=== PATIENT | female | born 1980 | race Caucasian/White ===

== ENCOUNTER 2020-03-12 09:00 | Outpatient (CLI) | payer OTHER ==
[~2020-03-12 09:00] MED LIST: BUFFERED LIDOCAINE 10 ML SYRINGE ONE; GADOBUTROL 7.5 MMOL/7.5 ML VIAL ONE
[2020-03-12] MEDS ORDERED: GADOBUTROL 7.5 MMOL/7.5 ML VIAL IVP ONE (10:30)
[2020-03-12] MEDS ORDERED: BUFFERED LIDOCAINE 10 ML SYRINGE IU ONE (10:30)
[2020-03-12] MEDS ORDERED: iohexoL-240 10 ML VIAL IVP ONE (10:31)
--- NOTE | 2020-03-12 10:54 | XRAY Report ---
Reason: LEFT KNEE PAIN, R/O MENISCAL TEAR Procedure Date: 03/12/2020 Accession Number: [id number] / [id number] Procedure: FL - Arthrogram Needle Placement CPT Code: Final Report FULL RESULT: PROCEDURE: Arthrogram Needle Placement INDICATIONS: LEFT KNEE PAIN, R/O MENISCAL TEAR TECHNIQUE: PROCEDURE: Arthrogram Needle Placement INDICATIONS: LEFT KNEE PAIN, R/O MENISCAL TEAR CONTRAST: CONTRAST: GADAVIST/ OMNI FLUORO TIME: FLUORO TIME: 0:31 min and NUMBER IMAGES: 3 TECHNIQUE: The indications, alternatives, benefits, risks, and complications of the procedure were explained to the patient. Written informed consent was obtained and placed in the chart. The knee was examined fluoroscopically, and a site chosen for knee joint injection. The skin was prepped and draped in the usual fashion and 1% Lidocaine infiltrated from the skin down to the articular surface. A hypodermic needle was then introduced into the joint and iodinated contrast media was instilled to confirm the intra-articular needle tip placement. This was followed by approximately 50 mL dilute solution of a gadolinium containing MR contrast agent. The needle was removed and a bandage was applied. An Scot wrap was then applied around the knee joint to keep the contrast from collecting in the suprapatellar recess. The patient experienced no complications throughout the procedure and left the fluoroscopic suite in no apparent distress. FINDINGS: Single fluoroscopic spot image demonstrates intra-articular location to injected iodinated contrast. IMPRESSION: Successful fluoroscopically guided administration of dilute Gadolinium solution into the knee joint for MR arthrogram. Reviewed by: Jennifer Timmons MD on 03/12/2020 10:52 AM PDT Approved by: Jennifer Timmons MD on 03/12/2020 10:52 AM PDT Station ID: [id number]
--- NOTE | 2020-03-12 16:30 | MRI Report ---
PROCEDURE: Arthrogram Knee LT INDICATIONS: LEFT KNEE PAIN, R/O MENISCAL TEAR CONTRAST: TECHNIQUE: After the administration of 50 mL of dilute intra-articular Gadolinium contrast, sagittal T1 spin ech o with fat saturation and PD fast spin echo with fat saturation, coronal T1 spin echo with and withou t fat saturation, coronal T2 fast spin echo with fat saturation, axial PD fast spin echo with fat sat uration through the knee. COMPARISON: FINDINGS: Image quality: Diagnostic. There are post injection related changes in the prepatellar and lateral prepatellar soft tissues. Menisci: Medial meniscus intact. Lateral meniscus intact. Cruciate ligaments: Anterior cruciate ligament appears intact. Posterior cruciate ligament appears intact. Medial structures: The medial collateral ligament appears intact. The semimembranosus tendon appears intact. Visualized portions of the pes anserinus tendons appear normal. No abnormal bursal fluid. Lateral structures: Lateral collateral ligament appears grossly intact. Biceps femoris tendon appears intact. Iliotibial band within normal limits. Popliteus tendon within normal limits. Anterior structures: Patellar tendon appears intact Quadriceps tendon appears intact. Medial and lateral patellofemoral ligaments appear grossly intact, accounting for post injection rela azael change. Patellar alignment is normal. Hoffa's fat pad unremarkable. Bones and cartilage: No bone marrow contusions or fractures. Within the medial compartment, no focal cartilage defect Within the lateral compartment, no focal cartilage defect Within the patellofemoral compartment, mild thickening and intrasubstance signal change of the cartil age overlying the medial patellar facet. Femoral trochlear cartilage appears grossly intact. Joint space: No joint effusion. Small Rayo's cyst noted measuring approximately 3 cm in the cephalocaudad dimension and may be parti ally ruptured. No specific evidence of loose body identified. IMPRESSION: Mild patellofemoral chondromalacia No meniscal tear identified Small Rayo's cyst which may be partially ruptured Reviewed by: Elroy Aiken MD on 03/12/2020 4:29 PM PDT Approved by: Elroy Aiken MD on 03/12/2020 4:29 PM PDT Station ID: [id number]
== END 2020-03-12 09:01 | disposition home or self-care (01) ==
LOC: DI 09:00
PROVIDERS: ATTEND Family Medicine
DX: M22.42 Chondromalacia patellae, left knee (principal); M71.22 Synovial cyst of popliteal space [Baker], left knee
CPT/HCPCS: 27369; 73722; 77002; A9585

== ENCOUNTER 2020-11-20 16:52 | Outpatient (CLI) | payer OTHER | END 2020-11-20 16:53 | disposition home or self-care (01) | LOC: COV 16:52 | PROVIDERS: ATTEND Obstetrics & Gynecology | DX: Z01.812 Encounter for preprocedural laboratory examination (principal); N93.9 Abnormal uterine and vaginal bleeding, unspecified; Z20.822 Contact with and (suspected) exposure to COVID-19 ==

== ENCOUNTER 2020-11-21 11:17 | Outpatient (CLI) | payer OTHER | END 2020-11-21 11:18 | disposition home or self-care (01) | LOC: LAB 11:17 | PROVIDERS: ATTEND Obstetrics & Gynecology | DX: Z01.812 Encounter for preprocedural laboratory examination (principal); N93.9 Abnormal uterine and vaginal bleeding, unspecified | CPT/HCPCS: 86850; 86900; 86901 ==

== ENCOUNTER 2020-11-23 08:51 | Inpatient (IN) | payer OTHER ==
[~2020-11-23 08:51] MED LIST changes: +ACETAMINOPHEN 1,000 MG/100 ML 100 ML IV ONE; -BUFFERED LIDOCAINE 10 ML SYRINGE ONE; +CELECOXIB 100 MG CAPSULE PO ONE; +GABAPENTIN 400 MG CAPSULE ONE; -GADOBUTROL 7.5 MMOL/7.5 ML VIAL ONE; +ceFAZolin 2 GM/50 ML 2 GM/50 ML BAG IV ONE
[2020-11-23] MEDS ORDERED: LACTATED RINGERS 1,000 ML IV ONE ×2 (09:00→12:07)
[2020-11-23 09:10] LABS: HCG UR QUAL NEGATIVE
[2020-11-23] MEDS ORDERED: NALOXONE 0.4 MG/ML VIAL IVP PRN (09:29)
[2020-11-23] MEDS ORDERED: fentaNYL 100 MCG/2 ML VIAL IVP PRN (09:29)
[2020-11-23] MEDS ORDERED: MORPHINE 2 MG/ML CARPUJECT IVP PRN (09:29)
[2020-11-23] MEDS ORDERED: HYDROmorphone 0.5 MG/0.5 ML SYRINGE IVP PRN (09:29)
[2020-11-23] MEDS ORDERED: ATROPINE ABBOJECT 1 MG/10 ML SYRINGE IVP PRN (09:29)
[2020-11-23] MEDS ORDERED: ePHEDrine 50 MG/ML VIAL IVP PRN (09:29)
[2020-11-23] MEDS ORDERED: ONDANSETRON 4 MG/2 ML VIAL IVP PRN (09:29)
[2020-11-23] MEDS ORDERED: METOCLOPRAMIDE 10 MG/2 ML VIAL IVP PRN (09:29)
--- NOTE | 2020-11-23 09:29 | ANESTHESIA ---
Pre-Anesthesia VS, & Labs - Diagnosis Abnormal uterine bleeding - Procedure Total Laparoscopic Hysterectomy Vital Signs: Temp Pulse Resp BP Pulse Ox 36.7 C 92 18 134/90 H 99 11/23/20 09:01 11/23/20 09:01 11/23/20 09:01 11/23/20 09:01 11/23/20 09:01 Height: 5 ft 3 in Weight (kg): 87.7 kg Body Mass Index: 34.2 BMI Classification: Obese - NPO >8 hours - Is Patient ?: No - Lab Results Current Lab Results: Laboratory Tests 11/23/20 09:16: POC Whole Bld Glucose 83 Lab results reviewed: Yes Home Medications and Allergies Home Medications: Ambulatory Orders Butalb/Acetaminophen/Caffeine [Fioricet 50-300-40 mg Capsule] 1 each PO PRN 11/18/20 Citalopram Hydrobromide [Celexa] 40 mg PO 11/18/20 Ondansetron HCl [Zofran] 4 mg PO PRN 11/18/20 Butalb/Acetaminophen/Caffeine [Fioricet 50-300-40 mg Capsule] 1 each PO PRN 11/18/20 Citalopram Hydrobromide [Celexa] 40 mg PO 11/18/20 Ondansetron HCl [Zofran] 4 mg PO PRN 11/18/20 Allergies/Adverse Reactions: Allergies Allergy/AdvReac Type Severity Reaction Status Date / Time No Known Drug Allergies Allergy Verified 11/18/20 11:11 Anes History & Medical History - Anesthetic History Anesthesia Complications: reports: No previous complications Family history of Anesthesia Complications: Denies Family history of Malignant Hyperthermia: Denies - Medical History Cardiovascular: reports: None Pulmonary: reports: None Gastrointestinal: reports: None Urinary: reports: Kidney stones Musculoskeletal: reports: None Endocrine/Autoimmune: reports: None Skin: reports: None - Surgical History General: reports: 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, Colonoscopy Eyes Ears Nose Throat (EENT): reports: Tonsil/Adenoidectomy Urologic: reports: Ureterolithotomy (stones) Gynecologic: reports: LEEP (Cervical surgery) Exam General: Alert, Oriented x3, Cooperative, No acute distress Dental: WNL Mouth Openin Fingerbreadth Neck Mobility: Normal Mallampati classification: II Respiratory: Lungs clear, Normal breath sounds, No respiratory distress, No accessory muscle use Cardiovascular: Regular rate, Normal S1, Normal S2, No murmurs Plan Anesthesia Type: General Consent for Procedure(s) Verified and Reviewed: Yes Code Status: Attempt Resuscitation ASA classification: 2-Mild systemic disease Is this case an emergency?: No
[2020-11-23] MEDS ORDERED: ROCURONIUM 50 MG/5 ML VIAL ONE ×2 (09:33→11:39)
[2020-11-23] MEDS ORDERED: PROPOFOL 200 MG/20 ML VIAL IVP ONE (09:33)
[2020-11-23] MEDS ORDERED: LIDOCAINE-MPF 2% 5 ML VIAL ONE (09:33)
[2020-11-23] MEDS ORDERED: PHENAZOPYRIDINE 100 MG TABLET PO ONE (09:53)
[2020-11-23] MEDS ORDERED: LACTATED RINGERS 1,000 ML IV SCH (10:00)
[2020-11-23] MEDS ORDERED: BUPIVACAINE 0.25% PF 30 ML VIAL ONE (10:01)
[2020-11-23] MEDS ORDERED: fentaNYL 100 MCG/2 ML VIAL ONE ×2 (10:07→11:23)
[2020-11-23] MEDS ORDERED: ONDANSETRON 4 MG/2 ML VIAL ONE (10:34)
[2020-11-23] MEDS ORDERED: DEXAMETHASONE 4 MG/ML VIAL ONE (10:34)
[2020-11-23] MEDS ORDERED: BUPIVACAINE 0.25% PF 30 ML VIAL SUBQ ONE (10:48)
[2020-11-23] MEDS ORDERED: SUGAMMADEX 200 MG/2 ML VIAL IVP ONE (12:00)
[2020-11-23] MEDS: HYDROmorphone 1 MG/ML CARPUJECT ONE ×2 (12:22→12:28)
--- NOTE | 2020-11-23 12:23 | OPERATIVE REPORT ---
Operative Report - General Admit Date: 11/23/20 Planned Procedure: Total Laparoscopic Hysterectomy, Bilateral Salpingectomy, Cystoscopy Pre-Op Diagnosis: Abnormal Uterine Bleeding, Excessive and frequent menses w/ irregular cycle Procedure Performed: Total Laparoscopic Hysterectomy, Bilateral Salpingectomy, Cystoscopy Post Op Diagnosis: Abnormal Uterine Bleeding, Excessive and frequent menses w/ irregular cycle - Procedure Note Primary Surgeon: Yen Secondary Surgeon: Sania Anesthesia Provider: Alexei Anesthesia Technique: General ET tube Pathology: Uterus, cervix, right and left fallopian tubes IV Fluids (mL): 1,100 (Lactated Ringers) Estimated Blood Loss (mL): 100 Urine Output (mL): 200 Indications: 40 year old female with abnormal uterine bleeding with hormonal contraception and heavy menstrual bleeding with irregular cycles when not on contraception, who is finished with childbearing and declined further hormonal contraception use. She desired definitive surgical management with hysterectomy. The patient was counseled and consented for the procedure. Findings: Exam under anesthesia: Uterus with normal size, shape, and contour, mobile but with limited descent. No adnexal masses. Intraoperative: Uterus sounded to 8cm. On laparoscopy, normal uterus, bilateral fallopian tubes, and ovaries. Normal anterior cul-de-sac. Posterior cul-de-sac very vascular with some peritoneal scarring. The right ureter had questionnable duplicated appearance, the left ureter had normal single appearance. Normal liver edge. Appendix not visualized. Cystoscopy: Normal bladder without injuries or sutures. Brisk efflux of urine visualized from bilateral ureteral orifices. There is only a single ureteral orifice on each side. Complications: None - Other Other Information/Narrative: OPERATIVE PROCEDURE: The patient was taken to the operating room where general endotracheal anesthesia was performed without any complications. An examination under anesthesia was performed notable for above findings. The patient was prepared and draped in the usual sterile fashion in the dorsal low lithotomy position. A Smith catheter was placed in the bladder and an [employer] uterine manipulator with Georgi cervical cup was placed in the uterus to provide uterine manipulation. A vaginal balloon was inflated with saline to aid in pneumoperitoneum. An incision was made in the inferior pole of the umbilicus, and the Veress needle was used to insufflate the abdomen with CO2 gas. Intraabdominal placement could not be confirmed due to varying initial entry pressure. Attempt at Veress needle placement at the left midclavicular line 2cm from the costal margin yielded a similar result. The laparoscopic trocar and scope were then placed under direct visualization into the left midclavicular line 2cm from costal margin. A pneumoperitoneum was then created with CO2 gas to maintain maximum pressure of 15mm Hg. Ancillary ports were placed all under direct visualization. The first was a 5 mm port at the umbilicus, the second a 5mm port near the left ASIS, the third a 11 mm port near the right ASIS. Survey of the abdomen and pelvis revealed the findings as noted above. The ureters were easily identified transperitoneally bilaterally, with questionable duplicated ureter on right side. The Ligasure device was used to seal and transect the right utero-ovarian and round ligaments, opening the anterior leaf of the broad ligament down to the level of the cervix. The uterine artery was skeletonized, sealed and ligated using the Ligasure device. The same procedure was performed on the left side. A bladder flap was created and the bladder dissected down from the cervix until the endopelvic fascia was identified. The Georgi cup was identified and an incision was made in the cervicovaginal junction on top of the vaginal cuff. This incision was continued circumferentially following the Georgi cup until the cervix was freed from the surrounding vagina. The uterus was then delivered through the vagina. The vaginal cuff was closed using 0 V-loc suture endostitch in running fashion. The pelvis was irrigated and the entire pelvis and bilateral pedicles were noted to be hemostatic. The smith was removed and cystoscopy was performed for inspection of the bladder. A complete survey of the bladder revealed no injury or defects to the bladder or the urethra, and brisk efflux of urine was noted from bilateral ure teral orifices. Of note, there was only a single ureteral orifice on each side. The cystoscope was removed and the smith catheter replaced. All instruments were removed from the abdomen. The abdomen was decompressed and all the trocars were removed. The RLQ fascia was closed with 0-vicryl using the Tanner-Epifanio device. All skin incisions were closed with 4-0 monocryl in subcuticular fashion and covered with Dermabond. All instruments were removed from the vagina. The patient tolerated the procedure well. All sponge, sharp, and instrument counts were correct x2. The patient was awakened from anesthesia and taken to the recovery room in stable condition with a Smith catheter in place.
[2020-11-23] MEDS ORDERED: HYDROmorphone 1 MG/ML CARPUJECT ONE ×2 (12:32→13:05)
[2020-11-23] MEDS ORDERED: HYDROmorphone 0.5 MG/0.5 ML SYRINGE ONE (12:55)
--- NOTE | 2020-11-23 13:04 | ANESTHESIA POST OP EVALUATION ---
Anesthesia Post Eval - Post Anesthesia Eval Vitals: Last Vital Signs Temp 36.8 C 11/23/20 12:50 Pulse 92 11/23/20 12:50 Resp 11 L 11/23/20 12:50 BP 115/73 11/23/20 12:50 Pulse Ox 96 11/23/20 12:50 CV Function Including HR & BP: positive: Stable Pain Control: positive: Satisfactory Nausea & Vomiting: positive: Negative Mental Status: positive: Baseline Respiratory Status: Airway Patent Hydration Status: Satisfactory Anesthesia Complications: positive: None
[2020-11-23] MEDS: oxyCODONE 5 MG TABLET PO PRN ×2 (13:43→18:14)
[2020-11-23] MEDS: SIMETHICONE CHEW 80 MG TABLET PO SCH ×2 (13:43→22:37)
[2020-11-23] MEDS: MORPHINE 10 MG/ML VIAL IVP PRN ×2 (14:37→20:03)
--- NOTE | 2020-11-23 16:35 | PHARMACY PROGRESS NOTE ---
- Best Possible Medication History Admit Date and Time: 11/23/20 0851 Processed by: Pharmacy Medication History completed: Yes Patient Interview: Completed (Pt interviewed by Darrell 11/23/20) Secondary Source(s): Pharmacy records, Insurance records As the person ultimately responsible for medication therapy, providers are able to order a medication from an existing home medication list in [facility] via the "Reconcile Routine" prior to Confirmation of that medication by behaviour support teacher. Such practice is discouraged except when the physician, in their clinical judgment, deems that a medical need exists for a medication without regard to previous use.
[2020-11-23] MEDS: ACETAMINOPHEN 500 MG TABLET PO SCH ×2 (17:03→23:30)
[2020-11-23] MEDS: LACTATED RINGERS 1,000 ML IV SCH (17:41)
[2020-11-23] MEDS: ONDANSETRON 4 MG/2 ML VIAL IVP PRN (19:08)
[2020-11-23] MEDS: DOCUSATE SODIUM 100 MG CAPSULE PO SCH (22:00)
[2020-11-23] MEDS: KETOROLAC 30 MG/ML VIAL IVP SCH (22:37)
[2020-11-24] MEDS: LACTATED RINGERS 1,000 ML IV SCH ×3 (04:07→23:34)
[2020-11-24] MEDS: KETOROLAC 30 MG/ML VIAL IVP SCH ×2 (04:08→10:29)
[2020-11-24 04:56] LABS: BASOPHILS # (AUTO) 0.1 10^3/uL (0.0-0.1); BASOPHILS % (AUTO) 0.4 %; EOSINOPHILS % (AUTO) 0.3 %; HCT - HEMATOCRIT 36.6 % (37.0-47.0); HGB - HEMOGLOBIN 11.4 g/dL (12.0-16.0); LYMPHOCYTES # (AUTO) 2.1 10^3/uL (1.5-3.5); LYMPHOCYTES % (AUTO) 15.9 %; MEAN CORPUSCULAR HEMOGLOBIN 28.4 pg (27.0-31.0); MEAN CORPUSCULAR HGB CONC 31.1 g/dL (32.0-36.0); MEAN PLATELET VOLUME 9.5 fL (7.9-10.8); MONOCYTES # (AUTO) 0.7 10^3/uL (0.0-1.0); MONOCYTES % (AUTO) 5.1 %; NEUTROPHILS # (AUTO) 10.5 10^3/uL (1.5-6.6); NEUTROPHILS % (AUTO) 77.9 %; PLT - PLATELET COUNT 310 10^3/uL (130-450); RED BLOOD COUNT 4.02 10^6/uL (4.20-5.40); RED CELL DISTRIBUTION WIDTH 14.9 % (12.0-15.0); WHITE BLOOD COUNT 13.4 x10^3/uL (4.8-10.8)
[2020-11-24] MEDS: ACETAMINOPHEN 500 MG TABLET PO SCH ×4 (05:28→22:06)
[2020-11-24] MEDS: SIMETHICONE CHEW 80 MG TABLET PO SCH ×3 (05:28→22:06)
[2020-11-24] MEDS: DOCUSATE SODIUM 100 MG CAPSULE PO SCH ×2 (08:24→20:52)
[2020-11-24] MEDS: oxyCODONE 5 MG TABLET PO PRN (08:25)
[2020-11-24] MEDS: ONDANSETRON 4 MG/2 ML VIAL IVP PRN ×2 (08:25→14:52)
--- NOTE | 2020-11-24 13:42 | PROVIDER PROGRESS NOTE ---
Subjective - Prog Note Date Prog Note Date: 11/24/20 Prog Note Time: 06:40 - Subjective Pt reports feeling: Improved Subjective: 40yof now POD#1 s/p uncomplicated TLH/bilateral salpingectomy/cystoscopy for AUB/HMB. She reports sharp pain on RLQ incision with twisting movements. Pain bad last night but getting better. Had nausea last night and ate very little. Denies lightheadedness/dizziness. Has not yet ambulated. Denies CP/SOB. Has not yet had flatus. No other complaints. Current Medications - Current Medications Current Medications: see MAR Objective - Vital Signs/Intake & Output Reviewed Vital Signs: Yes Vital Signs: Vital Signs x48h Temp Pulse Resp BP Pulse Ox 11/24/20 11:36 98.4 F 79 16 108/63 95 11/24/20 08:00 98.6 F 75 16 103/67 94 Intake & Output: Intake & Output 11/21/20 11/22/20 11/23/20 11/24/20 23:59 23:59 23:59 23:59 Intake Total 963 1360 Output Total 1175 335 Balance -212 1025 - Objective General Appearance: positive: No acute distress Eyes Bilateral: positive: Normal inspection ENT: positive: ENT inspection nml, No signs of dehydration Neck: positive: Nml inspection Respiratory: positive: Chest non-tender, No respiratory distress Cardiovascular: positive: Regular rate & rhythm Abdomen: positive: No distention, Tenderness (Appropriate tenderness to palpation) Back: positive: Nml inspection Skin: positive: Color nml, No rash, Other (Abdominal skin incisions clean and dry, covered with dermabond) Extremities: positive: Non-tender, Nml appearance, No pedal edema Neurologic/Psychiatric: positive: Oriented x3 Comments/Other: - scant blood on peripad - Lab Results Fish Bones: 11/24/20 04:29 Other Labs: Lab Results x24hrs 11/24/20 Range/Units 04:29 WBC 13.4 H (4.8-10.8) x10^3/uL RBC 4.02 L (4.20-5.40) 10^6/uL Hgb 11.4 L (12.0-16.0) g/dL Hct 36.6 L (37.0-47.0) % MCV 91.0 (81.0-99.0) fL MCH 28.4 (27.0-31.0) pg MCHC 31.1 L (32.0-36.0) g/dL RDW 14.9 (12.0-15.0) % Plt Count 310 (130-450) 10^3/uL MPV 9.5 (7.9-10.8) fL Neut # (Auto) 10.5 H (1.5-6.6) 10^3/uL Lymph # (Auto) 2.1 (1.5-3.5) 10^3/uL [place] # (Auto) 0.7 (0.0-1.0) 10^3/uL Eos # (Auto) 0.0 (0.0-0.7) 10^3/uL Baso # (Auto) 0.1 (0.0-0.1) 10^3/uL Absolute Nucleated RBC 0.00 x10^3/uL Nucleated RBC % 0.0 /100WBC Assessment/Plan - Problem List (1) Heavy menstrual bleeding Impression: 40 year old female now POD#1 s/p uncomplicated TLH/bilateral salpingectomy/cystoscopy for abnormal uterine bleeding/heavy menstrual bleeding, doing well. Afebrile, hemodynamically stable. - plan for continued routine post-surgical care - encourage ambulation - if pain control is better this afternoon/evening, will plan for discharge home. Qualifiers: Menorrhagia type: with irregular cycle Qualified Code(s): N92.1 - Excessive and frequent menstruation with irregular cycle (2) Status post laparoscopic hysterectomy Impression: stable
[2020-11-24] MEDS: MORPHINE 10 MG/ML VIAL IVP PRN (13:46)
[2020-11-24] MEDS: IBUPROFEN 800 MG TABLET PO SCH ×2 (16:37→22:06)
[2020-11-25] MEDS: ACETAMINOPHEN 500 MG TABLET PO SCH ×2 (05:03→11:07)
[2020-11-25] MEDS: IBUPROFEN 800 MG TABLET PO SCH ×2 (05:03→13:57)
[2020-11-25] MEDS: SIMETHICONE CHEW 80 MG TABLET PO SCH ×2 (05:03→13:57)
[2020-11-25] MEDS: ONDANSETRON 4 MG/2 ML VIAL IVP PRN ×2 (07:49→13:57)
[2020-11-25] MEDS: DOCUSATE SODIUM 100 MG CAPSULE PO SCH (07:49)
--- NOTE | 2020-11-25 08:59 | DISCHARGE SUMMARY ---
"Discharge Summary Admit Date: 11/23/20 Discharge Date: 11/25/20 Discharging Provider: Yen Code Status: Attempt Resuscitation Condition at Discharge: Good Discharge Disposition: 01 Home, Self Care - DIAGNOSES Admission Diagnoses: Abnormal Uterine Bleeding, Excessive and frequent menses with irregular cycle Discharge Diagnoses with Status of Each Condition: 1. Abnormal Uterine Bleeding - status post hysterectomy, stable 2. Excessive and frequent menses with irregular cycle - status post hysterectomy, stable 3. Status post hysterectomy - stable - HPI History of Present Illness: 40 year old female with abnormal uterine bleeding with hormonal contraception and heavy menstrual bleeding with irregular cycles when not on contraception, who is finished with childbearing and declined further hormonal c ontraception use. She desired definitive surgical management with hysterectomy. The patient was counseled and consented for the procedure. - CONSULTS | PROCEDURES Procedures: Total Laparoscopic Hysterectomy, Bilateral salpingectomy, cystoscopy - HOSPITAL COURSE Hospital Course: The patient underwent uncomplicated total laparoscopic hysterectomy, bilateral salpingectomy, and cystoscopy. She was admitted for post-surgical care. She remained afebrile and hemodynamically stable during her hospital course. She wa s voiding spontaneously, tolerating a regular diet, ambulating, and had good pain control on oral pain medications. She was meeting discharge criteria and was discharged home in stable condition on POD#2. - ALLERGIES Allergies/Adverse Reactions: Allergies Allergy/AdvReac Type Severity Reaction Status Date / Time No Known Drug Allergies Allergy Verified 11/18/20 11:11 - MEDICATIONS Home Medications: Ambulatory Orders Medication Instructions Recorded Confirmed Butalb/Acetaminophen/Caffeine 1 each PO PRN PRN 11/18/20 11/23/20 [Fioricet 50-300-40 mg Capsule] Citalopram Hydrobromide [Celexa] 40 mg PO DAILY 11/18/20 11/23/20 Ondansetron HCl [Zofran] 4 mg PO PRN PRN 11/18/20 11/23/20 Cyclobenzaprine [Flexeril] 10 mg PO PRN PRN 11/23/20 11/23/20 Ibuprofen [Motrin] 800 mg PO PRN PRN 11/23/20 11/23/20 Home Medications Other | Comments: Acetaminophen 325mg (patient already has), take 3 tablets by mouth every 6 hours as needed for pain. DO NOT EXCEED 4000 MG OF ACETAMINOPHEN IN A 24 HOUR PERIOD FROM ALL SOURCES. Ibuprofen 800mg (patient already has), take 1 tablet by mouth every 8 hours with food or milk as needed for pain. Oxycodone 5mg (patient already has), take 1-2 tablets by mouth every 6 hours as needed for pain not relieved by acetaminophen and ibuprofen. - PHYSICAL EXAM AT DISCHARGE General Appearance: positive: No acute distress, Alert Eyes Bilateral: positive: Normal inspection ENT: positive: ENT inspection nml, No signs of dehydration Neck: positive: Nml inspection Respiratory: positive: Chest non-tender, No respiratory distress Cardiovascular: positive: Regular rate & rhythm Peripheral Pulses: positive: 2+ Abdomen: positive: No distention, Tenderness (appropriate tenderness to palpation) Back: positive: Nml inspection Skin: positive: Color nml, No rash, Other (abdominal incision scars clean and dry, covered with dermabond) Extremities: positive: Non-tender, Nml appearance, No pedal edema Neurologic/Psychiatric: positive: Oriented x3 Physical Exam Other/Comments: - scant blood on peripad - LABS Result Diagrams: 11/24/20 04:29 - FOLLOW UP Follow Up: Follow-up as scheduled in [facility] on 04Dec[facility]. - TIME SPENT Time Spent in Discharge (Minutes): 20"
[2020-11-25 11:17] VITALS: BP 119/71
== END 2020-11-25 14:30 | disposition home or self-care (01) | DRG 743 ==
LOC: MS2 08:51
PROVIDERS: ADMIT Obstetrics & Gynecology; ATTEND Obstetrics & Gynecology
PROC: 0UT7FZZ Resection of Bilateral Fallopian Tubes, Via Natural or Artificial Opening With Percutaneous Endoscopic Assistance (ICD-10-PCS; 2020-11-23)
PROC: 0UT9FZZ Resection of Uterus, Via Natural or Artificial Opening With Percutaneous Endoscopic Assistance (ICD-10-PCS; principal; 2020-11-23 10:30)
DX: N93.9 Abnormal uterine and vaginal bleeding, unspecified (principal); N92.1 Excessive and frequent menstruation with irregular cycle; I10 Essential (primary) hypertension; E66.9 Obesity, unspecified; Z68.34 Body mass index [BMI] 34.0-34.9, adult
CPT/HCPCS: 36415; 81025; 85025; A9270; J0131; J0690; J1170; J7120

== ENCOUNTER 2020-12-06 22:24 | Emergency (ER) | payer OTHER ==
--- NOTE | 2020-12-06 23:40 | ED Physician Documentation ---
PD HPI HEADACHE - Stated complaint Stated Complaint: LANCASTER/NAUSEA - Chief complaint Chief Complaint: Neuro - History obtained from History obtained from: Patient - History of Present Illness Timing - onset: How many hours ago (6) Timing - onset during: Rest Timing - duration: Hours Timing - details: Gradual onset Pain level now: 8 Worst headache ever?: No: Worst headache ever? Location: Right, Left, Other (predominantly occipital with lesser retro-orbital component) Quality: Throbbing, Aching Associated symptoms: Nausea, Vomiting, Weakness (generalized). 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 She also has generalized weakness. She had a laparoscopic hysterectomy 11/23, took oxycodone this evening without adequate relief of the headache Review of Systems Constitutional: denies: Fever, Chills, Sweats GI: reports: Nausea, Vomiting. denies: Abdominal Pain, Constipation, Diarrhea : reports: Hysterectomy. 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: LEEP (Cervical surgery) HEENT: Tonsil/Adenoidectomy - Present Medications Home Medications: Ambulatory Orders Medication Instructions Recorded Confirmed Butalb/Acetaminophen/Caffeine 1 each PO PRN PRN 11/18/20 12/06/20 [Fioricet 50-300-40 mg Capsule] Citalopram Hydrobromide [Celexa] 40 mg PO DAILY 11/18/20 12/06/20 Ondansetron HCl [Zofran] 4 mg PO PRN PRN 11/18/20 12/06/20 Cyclobenzaprine [Flexeril] 10 mg PO PRN PRN 11/23/20 12/06/20 Ibuprofen [Motrin] 800 mg PO PRN PRN 11/23/20 12/06/20 Gabapentin [Neurontin] 1 tab PO TID 12/06/20 12/06/20 oxyCODONE [Roxicodone] 1 tab PO PRN PRN 12/06/20 12/06/20 Promethazine [Phenergan] 25 mg PO Q6H PRN #14 tablet 12/07/20 - Allergies Allergies/Adverse Reactions: Allergies Allergy/AdvReac Type Severity Reaction Status Date / Time No Known Drug Allergies Allergy Verified 12/06/20 22:33 - Social History Smoking Status: Never smoker PD ED PE NORMAL - Vitals Vital signs reviewed: Yes - General General: Alert and oriented X 3, No acute distress, Well developed/nourished - HEENT HEENT: PERRL, EOMI - Neck Neck: Supple, no meningeal sign - Cardiac Cardiac: RRR, No murmur - Respiratory Respiratory: No respiratory distress, Clear bilaterally - Abdomen Abdomen: Soft, Non distended, Other (mild TTP across lower abdomen which she feels is about as tender as it has been past few days) - Back Back: No CVA TTP Results - Vitals Vitals: Vital Signs - 24 hr 12/06/20 12/07/20 12/07/20 22:31 00:32 02:00 Temperature 36.4 C L Heart Rate 84 88 84 Respiratory 20 16 16 Rate Blood Pressure 146/94 H 129/83 H O2 Saturation 98 93 98 Oxygen O2 Source Room air - Labs Labs: Laboratory Tests 12/07/20 12/07/20 00:04 00:04 WBC 17.0 H RBC 4.58 Hgb 13.2 Hct 41.2 MCV 90.0 MCH 28.8 MCHC 32.0 RDW 14.6 Plt Count 375 MPV 9.3 Neut # (Auto) 13.8 H Lymph # (Auto) 1.8 [place] # (Auto) 0.5 Eos # (Auto) 0.7 Baso # (Auto) 0.1 Absolute Nucleated RBC 0.00 Nucleated RBC % 0.0 Sodium 137 Potassium 3.9 Chloride 102 Carbon Dioxide 25 Anion Gap 10.0 BUN 23 H Creatinine 0.6 Estimated GFR (MDRD) 112 Glucose 134 H Calcium 8.8 Total Bilirubin 0.6 AST 14 ALT 18 Alkaline Phosphatase 71 Total Protein 7.5 Albumin 4.1 Globulin 3.4 Albumin/Globulin Ratio 1.2 Lipase 28 PD MEDICAL DECISION MAKING - ED course Complexity details: reviewed results, re-evaluated patient, considered differential, d/w patient ED course: presents with LANCASTER, nausea and vomiting ("dry heaving" per patient) with photophobia. She reports feeling much improved after IV fluids, phenergan and one dose of IV dilaudid. She is afebrile. Her abdominal tenderness is most pronounced in suprapubic region and she says this does not seem any more tender than it has been past few days. Surgical (laparascopy) sites are all c/d/i without erythema. She has no meningismus. Departure - Departure Disposition: 01 Home, Self Care Clinical Impression: Headache Qualifiers: Headache type: unspecified Headache chronicity pattern: acute headache Intractability: not intractable Qualified Code(s): R51.9 - Headache, unspecified Condition: Good Instructions: ED Cephalgia Unspecified Follow-Up: DULCE HAINES DO [Primary Care Provider] - Prescriptions: Promethazine [Phenergan] 25 mg PO Q6H PRN #14 tablet PRN Reason: Nausea / Vomiting Discharge Date/Time: 12/07/20 02:29
[2020-12-06] MEDS ORDERED: HYDROmorphone 1 MG/ML CARPUJECT IVP STA (23:55)
[2020-12-06] MEDS ORDERED: SODIUM CHLORIDE 0.9% 1,000 ML IV STA (23:55)
[2020-12-06] MEDS ORDERED: PROMETHAZINE INJ 25 MG in SODIUM CHLORIDE 0.9% 50 ML IV STA (23:55)
[2020-12-07 00:09] LABS: BASOPHILS # (AUTO) 0.1 10^3/uL (0.0-0.1); BASOPHILS % (AUTO) 0.5 %; EOSINOPHILS # (AUTO) 0.7 10^3/uL (0.0-0.7); EOSINOPHILS % (AUTO) 3.9 %; HCT - HEMATOCRIT 41.2 % (37.0-47.0); HGB - HEMOGLOBIN 13.2 g/dL (12.0-16.0); LYMPHOCYTES # (AUTO) 1.8 10^3/uL (1.5-3.5); LYMPHOCYTES % (AUTO) 10.5 %; MEAN CORPUSCULAR HEMOGLOBIN 28.8 pg (27.0-31.0); MEAN PLATELET VOLUME 9.3 fL (7.9-10.8); MONOCYTES # (AUTO) 0.5 10^3/uL (0.0-1.0); MONOCYTES % (AUTO) 3.1 %; NEUTROPHILS # (AUTO) 13.8 10^3/uL (1.5-6.6); NEUTROPHILS % (AUTO) 81.5 %; PLT - PLATELET COUNT 375 10^3/uL (130-450); RED BLOOD COUNT 4.58 10^6/uL (4.20-5.40); RED CELL DISTRIBUTION WIDTH 14.6 % (12.0-15.0)
[2020-12-07] MEDS ORDERED: PROMETHAZINE 25 MG/1 ML VIAL ONE (00:15)
[2020-12-07 00:25] LABS: ALBUMIN 4.1 g/dL (3.2-5.5); ALBUMIN/GLOBULIN RATIO 1.2 (1.0-2.2); BILIRUBIN,TOTAL 0.6 mg/dL (0.2-1.0); CALCIUM 8.8 mg/dL (8.5-10.3); CREATININE 0.6 mg/dL (0.4-1.0); POTASSIUM 3.9 mmol/L (3.5-5.0); TOTAL PROTEIN 7.5 g/dL (6.7-8.2)
[2020-12-07] MEDS ORDERED: ONDANSETRON 4 MG/2 ML VIAL IVP STA (02:24)
[2020-12-07 02:29] VITALS: BP 129/83
== END 2020-12-07 02:29 | disposition home or self-care (01) ==
LOC: ED 22:24
DX: R51.9 Headache, unspecified (principal); R11.2 Nausea with vomiting, unspecified; R53.1 Weakness; H53.149 Visual discomfort, unspecified; Z98.890 Other specified postprocedural states; Z90.710 Acquired absence of both cervix and uterus
CPT/HCPCS: 36415; 80053; 83690; 85025; 96361; 96374; 96375; 99284; J1170; J7040

== ENCOUNTER 2021-06-16 12:19 | Outpatient (CLI) | payer OTHER ==
--- NOTE | 2021-06-17 12:48 | XRAY Report ---
PROCEDURE: Shoulder 2 View LT INDICATIONS: L SHOULDER PX TECHNIQUE: 2 views of the shoulder were acquired. COMPARISON: None. FINDINGS: Bones: No fractures or dislocations. No suspicious bony lesions. Visualized ribs appear intact. Soft tissues: No suspicious soft tissue calcifications. IMPRESSION: No visualized acute fracture or dislocation. However, occult injury cannot be excluded. Recommend short interval imaging follow-up in 7-10 days as clinically indicated for additional evalua tion. Reviewed by: Rebekah Dennis MD on 06/17/2021 12:46 PM PDT Approved by: Rebekah Dennis MD on 06/17/2021 12:46 PM PDT Station ID: [id number]
== END 2021-06-16 12:20 ==
LOC: DI.N 12:19
PROVIDERS: ATTEND Family Medicine
DX: M25.512 Pain in left shoulder (principal)

== ENCOUNTER 2021-07-21 22:09 | Emergency (ER) | payer OTHER ==
--- NOTE | 2021-07-21 23:42 | ED Physician Documentation ---
PD HPI HEADACHE - Stated complaint Stated Complaint: HEADACHE - Chief complaint Chief Complaint: Neuro - History obtained from History obtained from: Patient - History of Present Illness Timing - onset: Today Timing - onset during: Light activity Timing - duration: Days (1) Timing - details: Gradual onset, Still present Worst headache ever?: No: Worst headache ever? (similar to prior migraines, with longer duration, but this is associated with general aches related to Moderna vaccine 2 days ago as well.) Location: Global Quality: Throbbing, Aching Associated symptoms: Nausea. No: Fever, Stiff neck, Vomiting, Weakness Improved by: Dark room Worsened by: Light Contributing factors: Other (Moderna vaccine 2 days ago with general aches, malaise, right deltoid/shoulder red with swelling.). No: Recent illness, Trauma Similar symptoms before: Diagnosis (headache is similar to prior migraines in character.) Recently seen: Other (Moderna COIVD vaccine 2 days ago.) Review of Systems Constitutional: reports: Myalgias, Fatigue. denies: Fever Eyes: reports: Photophobia. denies: Loss of vision Nose: denies: Rhinorrhea / runny nose, Congestion Throat: denies: Sore throat Respiratory: denies: Cough GI: reports: Nausea. denies: Abdominal Pain, Vomiting, Diarrhea Skin: reports: Rash (redness right shoulder at vaccine site, with swelling.) Neurologic: reports: Generalized weakness, Headache. 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 (Cervical surgery) HEENT: Tonsil/Adenoidectomy - Present Medications Home Medications: Ambulatory Orders Medication Instructions Recorded Confirmed Butalb/Acetaminophen/Caffeine 1 each PO PRN PRN 11/18/20 12/06/20 [Fioricet 50-300-40 mg Capsule] Citalopram Hydrobromide [Celexa] 40 mg PO DAILY 11/18/20 12/06/20 Ondansetron HCl [Zofran] 4 mg PO PRN PRN 11/18/20 12/06/20 Cyclobenzaprine [Flexeril] 10 mg PO PRN PRN 11/23/20 12/06/20 Ibuprofen [Motrin] 800 mg PO PRN PRN 11/23/20 12/06/20 Gabapentin [Neurontin] 1 tab PO TID 12/06/20 12/06/20 oxyCODONE [Roxicodone] 1 tab PO PRN PRN 12/06/20 12/06/20 Promethazine [Phenergan] 25 mg PO Q6H PRN #14 tablet 12/07/20 - Allergies Allergies/Adverse Reactions: Allergies Allergy/AdvReac Type Severity Reaction Status Date / Time No Known Drug Allergies Allergy Verified 07/21/21 22:18 - Social History Does the pt smoke?: No Smoking Status: Never smoker PD ED PE NORMAL - Vitals Vital signs reviewed: Yes - General General: Alert and oriented X 3, Well developed/nourished, Other (appears uncomfortable and prefers dark room. ) - HEENT HEENT: Moist mucous membranes, Pharynx benign - Neck Neck: Supple, no meningeal sign, No adenopathy - Cardiac Cardiac: RRR, No murmur - Respiratory Respiratory: Clear bilaterally - Derm Derm: Normal color, Warm and dry, Other (right lateral shoulder in deltoid area with local swelling, warmth, redness, tender around vaccine injection site. ) - Neuro Neuro: Alert and oriented X 3, No motor deficit, No sensory deficit, Normal speech Results - Vitals Vitals: Vital Signs - 24 hr 07/21/21 07/21/21 07/22/21 22:16 23:18 01:13 Temperature 36.8 C 36.8 C Heart Rate 88 81 74 Respiratory 20 20 Rate Blood Pressure 144/95 H 144/95 H 131/93 H O2 Saturation 100 99 94 07/22/21 01:59 Temperature 36.7 C Heart Rate 71 Respiratory 16 Rate Blood Pressure 122/81 H O2 Saturation 95 Oxygen O2 Source Room air PD MEDICAL DECISION MAKING - ED course Complexity details: re-evaluated patient (greatly improved after fluids and meds. She did get akithetic after the Compazine despite some dose of Benadryl. Given more benadryl and doing okay. ), considered differential (seems migraine headache in conjunction with general vaccine side effect symptoms. ), d/w patient Departure - Departure Disposition: 01 Home, Self Care Clinical Impression: Local reaction to COVID-19 vaccine Migraine headache Qualifiers: Migraine type: unspecified Status migrainosus presence: without status migrainosus Intractability: intractable Qualified Code(s): G43.919 - Migraine, unspecified, intractable, without status migrainosus Condition: Stable Record reviewed to determine appropriate education?: Yes Instructions: ED Headache Migraine Follow-Up: CALEB DAVIES MD [Primary Care Provider] - Comments: Rest for today. Stay well hydrated. Usual medications. Recheck if not staying improved over the next 1-2 days. The redness and swelling of the arm should decrease over the next few days. Forms: Activity restrictions Discharge Date/Time: 07/22/21 03:03
[2021-07-22] MEDS ORDERED: KETOROLAC 30 MG/ML VIAL IVP STA (00:04)
[2021-07-22] MEDS ORDERED: SODIUM CHLORIDE 0.9% 1,000 ML IV STA (00:04)
[2021-07-22] MEDS ORDERED: diphenhydrAMINE INJ 50 MG/ML VIAL IVP STA ×2 (00:04→00:55)
[2021-07-22] MEDS ORDERED: PROCHLORPERAZINE 10 MG/2 ML VIAL IVP STA (00:04)
[2021-07-22] MEDS ORDERED: DEXAMETHASONE 10 MG/ML VIAL IVP STA (00:05)
[2021-07-22] MEDS ORDERED: HYDROmorphone 1 MG/ML CARPUJECT IVP STA (00:50)
[2021-07-22] MEDS ORDERED: diphenhydrAMINE INJ 50 MG/ML VIAL ONE (01:04)
[2021-07-22] MEDS ORDERED: HYDROmorphone 1 MG/ML CARPUJECT ONE (01:04)
[2021-07-22 02:01] VITALS: BP 122/81
== END 2021-07-22 03:03 | disposition home or self-care (01) ==
LOC: ED 22:09
DX: G43.919 Migraine, unspecified, intractable, without status migrainosus (principal); R53.1 Weakness; M25.511 Pain in right shoulder; T50.B95A Adverse effect of other viral vaccines, initial encounter
CPT/HCPCS: 36415; 96374; 96375; 96376; 99283; 99285; J1170; J1200

== ENCOUNTER 2021-09-27 20:11 | Emergency (ER) | payer OTHER ==
[2021-09-27] MEDS ORDERED: HYDROmorphone 1 MG/ML CARPUJECT IM STA (20:59)
[2021-09-27] MEDS ORDERED: diphenhydrAMINE INJ 50 MG/ML VIAL IM STA (20:59)
[2021-09-27] MEDS ORDERED: DROPERIDOL 5 MG/2 ML VIAL IM STA (20:59)
--- NOTE | 2021-09-27 21:02 | ED Physician Documentation ---
History of Present Illness - Stated complaint Stated Complaint: HEADACHE NASUEA - Chief complaint Chief Complaint: Neuro - History obtained from History obtained from: Patient - Additonal information Additional information: Patient comes emergency department chief complaint of headache that started this morning. She states she woke up with a pain in her shoulders and that it slowly spread up her neck and into both sides of her head. She states it is a little worse on the left than the right. She denies any photophobia but states that she is sensitive to noise. Patient has a longstanding history of migraines and took her migraine medicine, along with ibuprofen, Tylenol, and Fioricet, but states none of it helped. She states that her headache feels about like previous headaches and that she does not have any new or different symptoms this time. No recent head injury. No fevers or other symptoms of illness. Patient states that she has some nausea but has not vomited. She tried taking Zofran for this at home but it did not help. No other complaints at this time. Review of Systems Ten Systems: 10 systems reviewed and negative Constitutional: reports: Reviewed and negative Eyes: reports: Reviewed and negative Ears: reports: Reviewed and negative Nose: reports: Reviewed and negative Throat: reports: Reviewed and negative Cardiac: reports: Reviewed and negative Respiratory: reports: Reviewed and negative GI: reports: Reviewed and negative : reports: Reviewed and negative Skin: reports: Reviewed and negative Musculoskeletal: reports: Reviewed and negative Neurologic: reports: Headache Psychiatric: reports: Reviewed and negative Endocrine: reports: Reviewed and negative Immunocompromised: reports: Reviewed and negative PD PAST MEDICAL HISTORY - Past Medical History Past Medical History: Yes Cardiovascular: None Respiratory: None Neuro: Migraines Endocrine/Autoimmune: None GI: None : Kidney stones HEENT: None Psych: None Musculoskeletal: None Derm: None - Past Surgical History 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, 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) HEENT: Tonsil/Adenoidectomy - Present Medications Home Medications: Ambulatory Orders Medication Instructions Recorded Confirmed Butalb/Acetaminophen/Caffeine 1 each PO PRN PRN 11/18/20 09/27/21 [Fioricet 50-300-40 mg Capsule] Citalopram Hydrobromide [Celexa] 40 mg PO DAILY 11/18/20 09/27/21 Ondansetron HCl [Zofran] 4 mg PO PRN PRN 11/18/20 12/06/20 Cyclobenzaprine [Flexeril] 10 mg PO PRN PRN 11/23/20 09/27/21 Ibuprofen [Motrin] 800 mg PO PRN PRN 11/23/20 09/27/21 Gabapentin [Neurontin] 1 tab PO TID 12/06/20 09/27/21 oxyCODONE [Roxicodone] 1 tab PO PRN PRN 12/06/20 12/06/20 Promethazine [Phenergan] 25 mg PO Q6H PRN #14 tablet 12/07/20 - Allergies Allergies/Adverse Reactions: Allergies Allergy/AdvReac Type Severity Reaction Status Date / Time No Known Drug Allergies Allergy Verified 09/27/21 20:19 - Social History Does the pt smoke?: No Smoking Status: Never smoker PD ED PE NORMAL - Vitals Vital signs reviewed: Yes - General General: Alert and oriented X 3, No acute distress, Well developed/nourished - HEENT HEENT: Atraumatic, PERRL, EOMI, Moist mucous membranes - Neck Neck: Supple, no meningeal sign, No bony TTP - Cardiac Cardiac: RRR, No murmur - Respiratory Respiratory: No respiratory distress, Clear bilaterally - Abdomen Abdomen: Soft, Non tender, Non distended - Back Back: No spinal TTP - Derm Derm: Normal color, Warm and dry, No rash - Extremities Extremities: No deformity, No edema, No calf tenderness / cord - Neuro Neuro: Alert and oriented X 3, 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 Review of her records revealed she had had an akathetic reaction to Compazine previously, which had responded to Benadryl. The patient stated that she had been able to take Phenergan without any problem previously. Patient was given IM doses of Dilaudid, droperidol, and Benadryl, with improvement in symptoms. We have discussed the usual indications for return. Departure - Departure Disposition: 01 Home, Self Care Clinical Impression: Migraine Qualifiers: Migraine type: unspecified Status migrainosus presence: without status migrainosus Intractability: not intractable Qualified Code(s): G43.909 - Migraine, unspecified, not intractable, without status migrainosus Condition: Stable Instructions: ED Headache Migraine Comments: You have been given narcotic and other sedating medication in the emergency department. Please do not drive for the next 8 hours. Discharge Date/Time: 09/27/21 21:50
[2021-09-27 21:49] VITALS: BP 135/81
== END 2021-09-27 21:50 | disposition home or self-care (01) ==
LOC: ED 20:11
DX: G43.909 Migraine, unspecified, not intractable, without status migrainosus (principal); R11.0 Nausea
CPT/HCPCS: 96372; 99283; 99284; J1170; J1200

== ENCOUNTER 2022-02-07 07:20 | Outpatient (CLI) | payer OTHER ==
[2022-02-07] MEDS ORDERED: GADOBUTROL 7.5 MMOL/7.5 ML VIAL ONE (07:38)
--- NOTE | 2022-02-07 08:30 | MRI Report ---
PROCEDURE: Brain W/WO INDICATIONS: MIGRAINE, AMNESIA CONTRAST: IV CONTRAST: Gadavist ml: 7 TECHNIQUE: Noncontrast axial T1 spin echo, axial T2 fast spin echo, sagittal and axial FLAIR, coronal T2 fast sp in echo, axial gradient echo, axial diffusion and ADC through the brain. After the administration of contrast, axial and coronal T1 spin echo with fat saturation through the brain. COMPARISON: None. FINDINGS: Image quality: Excellent. CSF spaces: Basal cisterns are patent. No extra-axial fluid collections. Ventricles are normal in size and shape. Brain: No midline shift. No intracranial bleeds or masses. No abnormal intracranial enhancement. There is cerebral volume loss for age. There is periventricular white matter chronic small vessel is chemic change. The brainstem appears normal. Diffusion-weighted images demonstrate no acute ischemi c insults. No chronic ischemic insults. Normal intravascular flow voids are present. Skull and face: Calvarial marrow is normal in signal. Orbits appear normal. Sinuses: There is mild mucosal thickening within the bilateral ethmoid, sphenoid, and maxillary sinus es. IMPRESSION: 1. No explanation for migraines, nor amnesia. 2. No acute process. No recent infarct. Reviewed by: Maday Love MD on 02/07/2022 8:29 AM PDT Approved by: Maday Love MD on 02/07/2022 8:29 AM PDT Station ID: [id number]
[2022-02-07] MEDS ORDERED: GADOBUTROL 7.5 MMOL/7.5 ML VIAL IVP ONE (16:52)
== END 2022-02-07 07:21 | disposition home or self-care (01) ==
LOC: DI 07:20
PROVIDERS: ATTEND Nurse Practitioner Family
DX: G43.909 Migraine, unspecified, not intractable, without status migrainosus (principal); R41.3 Other amnesia
CPT/HCPCS: 70553; A9585

== ENCOUNTER 2022-07-08 07:15 | Emergency (ER) | payer OTHER ==
[2022-07-08] MEDS ORDERED: KETOROLAC 30 MG/ML VIAL IVP STA (07:29)
[2022-07-08] MEDS ORDERED: SODIUM CHLORIDE 0.9% 1,000 ML IV STA (07:29)
[2022-07-08] MEDS ORDERED: ONDANSETRON 4 MG/2 ML VIAL IVP STA (07:29)
[2022-07-08] MEDS ORDERED: HYDROmorphone 1 MG/ML CARPUJECT IVP STA ×2 (07:29→08:47)
--- NOTE | 2022-07-08 07:36 | ED Physician Documentation ---
PD HPI ABD PAIN - Stated complaint Stated Complaint: LT FLANK/ABD PX - Chief complaint Chief Complaint: Abd Pain - History obtained from History obtained from: Patient - Additional information Additional information: Patient comes to the emergency department with chief complaint of left flank pain and nausea that started about an hour and a half ago. She states she went to bed feeling fine last night and that she awoke this morning with the pain. She denies any hematuria or dysuria. No fever or chills. No diarrhea. The patient states that she has a history of kidney stones and this feels the same. No other complaints at this time. Review of Systems Ten Systems: 10 systems reviewed and negative Constitutional: reports: Reviewed and negative Eyes: reports: Reviewed and negative Ears: reports: Reviewed and negative Nose: reports: Reviewed and negative Throat: reports: Reviewed and negative Cardiac: reports: Reviewed and negative Respiratory: reports: Reviewed and negative GI: reports: Abdominal Pain (Left flank), Nausea, Vomiting : reports: Reviewed and negative Skin: reports: Reviewed and negative Musculoskeletal: reports: Reviewed and negative Neurologic: reports: Reviewed and negative Psychiatric: reports: Reviewed and negative Endocrine: reports: Reviewed and negative Immunocompromised: reports: Reviewed and negative PD PAST MEDICAL HISTORY - Past Medical History Cardiovascular: None Respiratory: None Neuro: Migraines Endocrine/Autoimmune: None GI: None : Kidney stones HEENT: None Psych: None Musculoskeletal: None Derm: None - Past Surgical History 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, 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) HEENT: Tonsil/Adenoidectomy - Present Medications Home Medications: Ambulatory Orders Medication Instructions Recorded Confirmed Butalb/Acetaminophen/Caffeine 1 each PO PRN PRN 11/18/20 09/27/21 [Fioricet 50-300-40 mg Capsule] Citalopram Hydrobromide [Celexa] 40 mg PO DAILY 11/18/20 09/27/21 ondansetron HCL [Zofran] 4 mg PO PRN PRN 11/18/20 12/06/20 Cyclobenzaprine [Flexeril] 10 mg PO PRN PRN 11/23/20 09/27/21 Ibuprofen [Motrin] 800 mg PO PRN PRN 11/23/20 09/27/21 Gabapentin [Neurontin] 1 tab PO TID 12/06/20 09/27/21 oxyCODONE [Roxicodone] 1 tab PO PRN PRN 12/06/20 12/06/20 Promethazine [Phenergan] 25 mg PO Q6H PRN #14 tablet 12/07/20 HYDROcod/ACETAM 5/325 [[place] 5/325] 1 - 2 ea PO Q6H PRN #10 tablet 03/12/22 HYDROcod/ACETAM 5/325 [[place] 5/325] 1 - 2 tablet PO Q6H PRN #14 tablet 07/08/22 Ondansetron Odt [Zofran] 4 mg TL Q6H PRN #10 tablet 07/08/22 Tamsulosin [Flomax] 0.4 mg PO DAILY #12 cap 07/08/22 - Allergies Allergies/Adverse Reactions: Allergies Allergy/AdvReac Type Severity Reaction Status Date / Time No Known Drug Allergies Allergy Verified 03/12/22 14:51 - Social History Does the pt smoke?: No Smoking Status: Never smoker PD ED PE NORMAL - Vitals Vital signs reviewed: Yes - General General: Alert and oriented X 3, No acute distress, Well developed/nourished, Other (Patient appears moderately uncomfortable but otherwise in no apparent distress.) - HEENT HEENT: Atraumatic, PERRL, EOMI, Moist mucous membranes - Neck Neck: Supple, no meningeal sign - Cardiac Cardiac: RRR, No murmur, Strong equal pulses - Respiratory Respiratory: No respiratory distress, Clear bilaterally - Abdomen Abdomen: Soft, Non distended, Other (Left flank and left lower quadrant tenderness, moderate, no rebound or guarding.) - Derm Derm: Normal color, Warm and dry, No rash - Extremities Extremities: No deformity, No edema - Neuro Neuro: Alert and oriented X 3, 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, Normal speech - Psych Psych: Normal mood, Normal affect Results - Vitals Vitals: Oxygen O2 Source Room air - Labs Labs: Laboratory Tests 07/08/22 08:41 Urine Color YELLOW Urine Clarity CLEAR Urine pH 7.5 Ur Specific [place] 1.015 Urine Protein NEGATIVE Urine Glucose (UA) NEGATIVE Urine Ketones NEGATIVE Urine Occult Blood SMALL H Urine Nitrite NEGATIVE Urine Bilirubin NEGATIVE Urine Urobilinogen 1 (NORMAL) Ur Leukocyte Esterase NEGATIVE Urine RBC 0-5 Urine WBC 0-3 Ur Squamous Epith Cells MOD Squamous H Urine Bacteria Few Ur Microscopic Review INDICATED Urine Culture Comments NOT INDICATED Urine HCG, Qual NEGATIVE PD MEDICAL DECISION MAKING - ED course Complexity details: reviewed results, re-evaluated patient, considered differential, d/w patient ED course: The patient was worked up with urinalysis and ultimately, CT scan of the abdomen pelvis, and treated symptomatically with IV fluids, Zofran, Toradol, and Dilaudid. She was feeling better on re-evaluation. Her CT showed stones in the kidneys, but nothing passing. I d/w pt that it is possible that she passed the stone just before going to CT. We have discussed symptomatic management at home, as well as the usual indications for return. Departure - Departure Disposition: Home, Self Care Clinical Impression: Flank pain, Kidney stones Condition: Stable Instructions: ED Stone Renal Passed Prescriptions: Tamsulosin [Flomax] 0.4 mg PO DAILY #12 cap HYDROcod/ACETAM 5/325 [[place] 5/325] 1 - 2 tablet PO Q6H PRN #14 tablet PRN Reason: Pain Ondansetron Odt [Zofran] 4 mg TL Q6H PRN #10 tablet PRN Reason: Nausea / Vomiting Comments: Your CT scan shows several stones in both kidneys, but at the time of the CT, it did not show a stone to be currently passing. It is most probable, given your symptoms and history, that you are in the midst of passing a stone when you came in and it passed into your bladder shortly before CT. There can be some residual pain and spasm in the tube for some time after the stone passes, so this can be a reason for the lingering pain. Your urinalysis does not show any signs of infection but does show a little bit of blood, which is also consistent with the idea of kidney stone. You have benign cysts on your kidneys but otherwise, no additional findings on CT. Pres[facility] for medication for pain and [facility] [place], should your pain escalate again. You may follow-up with your primary doctor as needed. Discharge Date/Time: 07/08/22 10:25
[2022-07-08 08:50] LABS: BILIRUBIN,URINE NEGATIVE (NEGATIVE); GLUCOSE, URINE (UA) NEGATIVE (NEGATIVE); KETONES,URINE (UA) NEGATIVE (NEGATIVE); LEUKOCYTE ESTERASE, URINE NEGATIVE (NEGATIVE); NITRITE,URINE NEGATIVE (NEGATIVE); OCCULT BLOOD,URINE SMALL (NEGATIVE); PH,URINE 7.5 PH (5.0-7.5); PROTEIN,URINE NEGATIVE (NEGATIVE); UROBILINOGEN,URINE 1 (NORMAL) E.U./dL (NORMAL)
[2022-07-08 08:56] LABS: CLARITY,URINE CLEAR (CLEAR); HCG UR QUAL NEGATIVE
[2022-07-08 09:01] LABS: BACTERIA,URINE Few /HPF (None Seen); RBC,URINE 0-5 /HPF (0-5); SQUAMOUS EPITHELIAL CELL,UR MOD Squamous (<= Few); WBC,URINE 0-3 /HPF (0-5)
--- NOTE | 2022-07-08 09:53 | CT Report ---
PROCEDURE: ABDOMEN/PELVIS WO INDICATIONS: L flank pain TECHNIQUE: Noncontrast 5 mm thick sections acquired from the diaphragms to the symphysis. 5 mm coronal and sagi ttal reformats were then performed. For radiation dose reduction, the following was used: automated exposure control, adjustment of mA and/or kV according to patient size. COMPARISON: None. FINDINGS: Numerous bilateral nonobstructing renal calculi, all measuring less than 3-4 mm and most measuring no greater than 1-2 mm. Partially exophytic simple cyst projecting from the posterolateral left kidney measuring 2.3 cm with internal attenuation of approximately 16 Hounsfield units. No ureteral or bladd er calculus. Adrenal glands normal. 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 and sleeve gastrectomy changes. Large volume of stool throughout the colon which may indicate constipation. No abnormally dilated or thickened loops of bowel. Appendix is normal. Grossly normal unenhanced CT appearance of the liver, spleen, pancreas. Non-aneurysmal abdominal aort a. No significant osseous abnormality identified. Lung bases clear. IMPRESSION: Bilateral nonobstructing renal calculi. No findings of urinary tract obstruction or ureteral calculus. Apparent simple cyst projecting from the posterolateral aspect of the left kidney measuring 2.3 cm. A lthough unlikely, renal cysts such as these can be a source of flank pain (symptomatic cysts are typi jonathan much larger). Reviewed by: Fer Ramirez MD on 07/08/2022 9:51 AM PDT Approved by: Fer Ramirez MD on 07/08/2022 9:51 AM PDT Station ID: [id number]
[2022-07-08 10:18] VITALS: BP 113/87
== END 2022-07-08 10:25 | disposition home or self-care (01) ==
LOC: ED 07:15
DX: N20.0 Calculus of kidney (principal)
CPT/HCPCS: 36415; 74176; 81001; 81025; 96374; 96376; 99284; J1170; 81003; 87086

== ENCOUNTER 2022-12-11 11:46 | Emergency (ER) | payer OTHER ==
[2022-12-11 11:54] VITALS: BP 121/82
[2022-12-11] MEDS ORDERED: MORPHINE 2 MG/ML CARPUJECT IVP STA (12:02)
[2022-12-11] MEDS ORDERED: KETOROLAC 30 MG/ML VIAL IVP STA (12:02)
--- NOTE | 2022-12-11 12:05 | ED Physician Documentation ---
History of Present Illness - Stated complaint Stated Complaint: LT SIDE/ABD PX - Chief complaint Chief Complaint: Abd Pain - History obtained from History obtained from: Patient - History of Present Illness Timing: Today Pain level max: 9 Pain level now: 8 - Additonal information Additional information: Patient is a 42-year-old female who presents to the emergency department with left lower quadrant abdominal pain that started today. States sudden onset. Worse with palpation and movement. Nothing makes it better. She states that she has a history of chronic kidney stones but this feels different. Has had nausea but no vomiting. No fevers. No diarrhea, has had constipation. She states that she has had a hysterectomy. She states she is scheduled for a colonoscopy at the end of the week. Review of Systems Constitutional: denies: Fever, Chills Nose: denies: Rhinorrhea / runny nose, Congestion Cardiac: denies: Chest pain / pressure Respiratory: denies: Dyspnea, Cough, Wheezing GI: denies: Hematemesis, Bloody / black stool : denies: Dysuria, Frequency, Hesitancy, Now EGA Skin: denies: Rash Musculoskeletal: denies: Neck pain, Back pain Neurologic: denies: Headache PD PAST MEDICAL HISTORY - Past Medical History Cardiovascular: None Respiratory: None Neuro: Migraines Endocrine/Autoimmune: None GI: None : Kidney stones HEENT: None Psych: None Musculoskeletal: None Derm: None - Past Surgical History 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, Colonoscopy /[employer]: LEEP (Cervical surgery) HEENT: Tonsil/Adenoidectomy - Present Medications Home Medications: Ambulatory Orders Medication Instructions Recorded Confirmed Butalb/Acetaminophen/Caffeine 1 each PO PRN PRN 11/18/20 09/27/21 [Fioricet 50-300-40 mg Capsule] Citalopram Hydrobromide [Celexa] 40 mg PO DAILY 11/18/20 09/27/21 ondansetron HCL [Zofran] 4 mg PO PRN PRN 11/18/20 12/06/20 Cyclobenzaprine [Flexeril] 10 mg PO PRN PRN 11/23/20 09/27/21 Ibuprofen [Motrin] 800 mg PO PRN PRN 11/23/20 09/27/21 Gabapentin [Neurontin] 1 tab PO TID 12/06/20 09/27/21 oxyCODONE [Roxicodone] 1 tab PO PRN PRN 12/06/20 12/06/20 Promethazine [Phenergan] 25 mg PO Q6H PRN #14 tablet 12/07/20 HYDROcod/ACETAM 5/325 [[place] 5/325] 1 - 2 ea PO Q6H PRN #10 tablet 03/12/22 HYDROcod/ACETAM 5/325 [[place] 5/325] 1 - 2 tablet PO Q6H PRN #14 tablet 07/08/22 Ondansetron Odt [Zofran] 4 mg TL Q6H PRN #10 tablet 07/08/22 Tamsulosin [Flomax] 0.4 mg PO DAILY #12 cap 07/08/22 oxyCODONE [Roxicodone] 5 - 10 mg PO Q6H PRN #10 tablet 12/11/22 MDD 6 polyethylene glycoL 3350(BULK) 17 gm PO DAILY PRN #1 each 12/11/22 [Miralax] - Allergies Allergies/Adverse Reactions: Allergies Allergy/AdvReac Type Severity Reaction Status Date / Time fentanyl Allergy Diaphoresis Verified 12/11/22 11:54 - Social History Does the pt smoke?: No Smoking Status: Never smoker PD ED PE NORMAL - Vitals Vital signs reviewed: Yes - General General: Alert and oriented X 3, No acute distress - HEENT HEENT: Moist mucous membranes - Cardiac Cardiac: RRR, Strong equal pulses - Respiratory Respiratory: No respiratory distress, Clear bilaterally - Abdomen Abdomen: Soft, Non distended, Other (Tender to palpation left lower quadrant. No peritoneal signs) - Back Back: No spinal TTP - Derm Derm: Warm and dry - Extremities Extremities: No edema - Neuro Neuro: Alert and oriented X 3 - Psych Psych: Normal mood, Normal affect Results - Vitals Vitals: Vital Signs - 24 hr 12/11/22 11:50 Temperature 36.3 C L Heart Rate 117 H Respiratory 16 Rate Blood Pressure 121/82 H O2 Saturation 100 Oxygen O2 Source Room air - Labs Labs: Laboratory Tests 12/11/22 12/11/22 12:08 12:08 WBC 8.0 RBC 4.45 Hgb 13.3 Hct 41.4 MCV 93.0 MCH 29.9 MCHC 32.1 RDW 13.4 Plt Count 313 MPV 9.1 Neut # (Auto) 5.3 Lymph # (Auto) 1.6 [place] # (Auto) 0.4 Eos # (Auto) 0.6 Baso # (Auto) 0.1 Absolute Nucleated RBC 0.00 Nucleated RBC % 0.0 Sodium 137 Potassium 4.0 Chloride 104 Carbon Dioxide 27 Anion Gap 6.0 BUN 14 Creatinine 0.6 Estimated GFR (MDRD) 111 Glucose 101 H Calcium 9.0 Total Bilirubin 0.7 AST 13 ALT 11 Alkaline Phosphatase 51 Total Protein 7.5 Albumin 4.1 Globulin 3.4 Albumin/Globulin Ratio 1.2 Lipase 40 - Rads (name of study) ct abd/pelvis Relevant Findings:: Final report received, See rad report PD Medical Decision Making - ED course Complexity details: reviewed results, re-evaluated patient, considered differential, d/w patient ED course: CT scan of the abdomen pelvis does not show any acute abnormalities but does show constipation. Her laboratory testing including CBC and ER abdominal panel did not show any acute abnormalities. We will place her on MiraLAX and pain medication for home. She states she does take [place] regularly at home and request something "stronger". She is well-appearing, nontoxic. Afebrile. Tolerating p.o. without difficulty here. Patient states that she has a colonoscopy at the end of the week. Patient counseled regarding signs and symptoms for which I believe and urgent re-evaluation would be necessary. Patient with good understanding of and agreement to plan and is comfortable going home at this time This document was made in part using voice recognition software. While efforts are made to proofread this document, sound alike and grammatical errors may occur. Departure - Departure Disposition: 01 Home, Self Care Clinical Impression: Abdominal pain Qualifiers: Abdominal location: left lower quadrant Qualified Code(s): R10.32 - Left lower quadrant pain Constipation Qualifiers: Constipation type: unspecified constipation type Qualified Code(s): K59.00 - Constipation, unspecified Condition: Good Instructions: ED Abdominal Pain Female Non-Specific Abdominal Pain, ED C onstipation Follow-Up: SHARON BOLTON DO [Primary Care Provider] - Within 1 week Prescriptions: polyethylene glycoL 3350(BULK) [Miralax] 17 gm PO DAILY PRN #1 each PRN Reason: Constipation oxyCODONE [Roxicodone] 5 - 10 mg PO Q6H PRN #10 tablet MDD 6 PRN Reason: pain Comments: Please follow-up with your doctor later this week for repeat evaluation. Your CT scan does show significant constipation. Please make sure you are drinking plenty of water at home. We will prescribe a laxative for you. We will also prescribe a small amount of pain medicine for you. [facility] in [place] I am prescribing a short course of narcotic pain medication for you. These are potentially dangerous and addictive medications that should be used carefully. These medications may constipate you. Take an fknl-qau-jiidkhp stool softener (docusate) twice daily with plenty of water while taking these medications. If you go 24 hours without a bowel movement, take douj-syk-fzpbgiq miralax, per package instructions. Do not drink or drive while taking these medications. If you received narcotic or sedating medications while in the emergency department, do not drive for 24 hours. Store this medication in a safe, secure place and out of reach of children. It is a violation of federal law to give or sell this medication to another person or to use in a manner other than prescribed. The ED will not refill narcotic prescriptions, including prescriptions lost or stolen. To dispose of unwanted medications: 1. [facility] [address] in [place] has a medication drop box. They accept prescription medications (in pill form) Monday through Monday 9:00 a.m. to 5:00 p.m. 2. The [facility] [employer] accepts prescription medications (in pill form only) for disposal year round. Call for more information. 3. Contact the [facility] for the next [facility] sponsored prescription drug collection event. , [phone], or [phone]; Discharge Date/Time: 12/11/22 14:03
[2022-12-11] MEDS ORDERED: iohexoL-300 100 ML VIAL ONE (12:06)
[2022-12-11 12:13] LABS: BASOPHILS # (AUTO) 0.1 10^3/uL (0.0-0.1); BASOPHILS % (AUTO) 0.6 %; EOSINOPHILS # (AUTO) 0.6 10^3/uL (0.0-0.7); EOSINOPHILS % (AUTO) 7.4 %; HCT - HEMATOCRIT 41.4 % (37.0-47.0); HGB - HEMOGLOBIN 13.3 g/dL (12.0-16.0); LYMPHOCYTES # (AUTO) 1.6 10^3/uL (1.5-3.5); LYMPHOCYTES % (AUTO) 20.2 %; MEAN CORPUSCULAR HEMOGLOBIN 29.9 pg (27.0-31.0); MEAN CORPUSCULAR HGB CONC 32.1 g/dL (32.0-36.0); MEAN PLATELET VOLUME 9.1 fL (7.9-10.8); MONOCYTES # (AUTO) 0.4 10^3/uL (0.0-1.0); MONOCYTES % (AUTO) 5.3 %; NEUTROPHILS # (AUTO) 5.3 10^3/uL (1.5-6.6); NEUTROPHILS % (AUTO) 66.2 %; PLT - PLATELET COUNT 313 10^3/uL (130-450); RED BLOOD COUNT 4.45 10^6/uL (4.20-5.40); RED CELL DISTRIBUTION WIDTH 13.4 % (12.0-15.0)
[2022-12-11 12:28] LABS: ALBUMIN 4.1 g/dL (3.2-5.5); ALBUMIN/GLOBULIN RATIO 1.2 (1.0-2.2); BILIRUBIN,TOTAL 0.7 mg/dL (0.2-1.0); CREATININE 0.6 mg/dL (0.4-1.0); TOTAL PROTEIN 7.5 g/dL (6.7-8.2)
[2022-12-11] MEDS ORDERED: iohexoL-300 100 ML VIAL IVP ONE (12:56)
--- NOTE | 2022-12-11 13:02 | CT Report ---
PROCEDURE: ABDOMEN/PELVIS W INDICATIONS: LLQ Abdominal pain, diverticulitis suspected CONTRAST: 100ml omni 300 TECHNIQUE: After the administration of intravenous contrast, 5 mm thick sections acquired from the diaphragms to the symphysis. 5 mm thick coronal and sagittal reformats were acquired. For radiation dose reducti on, the following was used: automated exposure control, adjustment of mA and/or kV according to pranay ent size. COMPARISON: CT dated 07/08/2022 FINDINGS: Image quality: Excellent. ABDOMEN: Lung bases: Lung bases are clear. Heart size is normal. Solid organs: Liver and spleen are normal in size and enhancement. Gallbladder surgically absent B iliary system is non dilated. Pancreas enhances normally. No adrenal nodules. Kidneys demonstrate normal size and enhancement, without hydronephrosis. No change in small nonobstructing bilateral jordy al calculi. Peritoneum and bowel: Bowel loops demonstrate normal wall thickness and caliber. No free fluid or a ir. Normal appendix. Nodes and vessels: No retroperitoneal or mesenteric adenopathy by size criteria. Aorta and inferior vena cava are normal in size. Miscellaneous: No ventral hernias. PELVIS: Genitourinary: Bladder wall thickness is normal. Miscellaneous: No inguinal hernias or adenopathy. Bones: No suspicious bony lesions. No vertebral body compression fractures. IMPRESSION: 1. No acute process. 2. Small nonobstructing bilateral renal calculi. 3. Normal appendix. Reviewed by: Maday Love MD on 12/11/2022 1:01 PM PDT Approved by: Maday Love MD on 12/11/2022 1:01 PM PDT Station ID: [id number]
== END 2022-12-11 14:03 | disposition home or self-care (01) ==
LOC: ED 11:46
DX: R10.32 Left lower quadrant pain (principal); K59.00 Constipation, unspecified
CPT/HCPCS: 36415; 74177; 80053; 83690; 85025; 96374; 99284; Q9967

== ENCOUNTER 2022-12-12 06:29 | Emergency (ER) | payer OTHER ==
[2022-12-12] MEDS ORDERED: KETOROLAC 60 MG/2 ML VIAL IM STA (07:31)
[2022-12-12] MEDS ORDERED: ONDANSETRON ODT 4 MG TABLET TL STA (07:31)
[2022-12-12] MEDS ORDERED: HYDROmorphone 1 MG/ML CARPUJECT IM STA (07:31)
--- NOTE | 2022-12-12 07:39 | ED Physician Documentation ---
PD HPI ABD PAIN - Stated complaint Stated Complaint: LEFT SIDE ABD PX - Chief complaint Chief Complaint: Abd Pain - History obtained from History obtained from: Patient - Additional information Additional information: The patient comes to the emergency department chief complaint of left flank pain that started a couple of days ago. She was seen here yesterday and at that time, stated that it felt like her usual kidney stone pain. She had a work-up that was completely negative, including labs and a CT scan of the abdomen and pelvis. The patient yesterday requested "something stronger" for pain and stated that her usual [place] was not working. She was prescribed Percocet, but her pharmacy did not have it, she states, so she was not able to get and has just been taking the [place]. Patient states the pain has gotten worse overnight and she did not sleep. She is also been nauseated. The patient states she has a history of multiple kidney stones and has previously seen Dr. Noemy Sigala of [facility] for this. She states she has had lithotripsy. She is scheduled to have a colonoscopy this coming Monday, which is 4 days from now, and has an appointment in urology on January 03. She denies any fevers, chills, dysuria, or hematuria. She has vomited a couple of times. She does have a history of a herniated disc in her low back, she states, but to her knowledge, it does not cause her much pain. She has never seen anybody else to determine why she gets the pains in the left flank but has negative stone work-up, as she did yesterday and also in June when I saw her previously. PD PAST MEDICAL HISTORY - Past Medical History Past Medical History: Yes Cardiovascular: None Respiratory: None Neuro: Migraines Endocrine/Autoimmune: None GI: None : Kidney stones HEENT: None Psych: None Musculoskeletal: None Derm: None - Past Surgical History 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, Colonoscopy /[employer]: LEEP (Cervical surgery) HEENT: Tonsil/Adenoidectomy - Present Medications Home Medications: Ambulatory Orders Medication Instructions Recorded Confirmed Butalb/Acetaminophen/Caffeine 1 each PO PRN PRN 11/18/20 12/12/22 [Fioricet 50-300-40 mg Capsule] ondansetron HCL [Zofran] 4 mg PO PRN PRN 11/18/20 12/12/22 Ibuprofen [Motrin] 800 mg PO PRN PRN 11/23/20 12/12/22 oxyCODONE [Roxicodone] 1 tab PO PRN PRN 12/06/20 12/12/22 HYDROcod/ACETAM 5/325 [[place] 5/325] 1 - 2 ea PO Q6H PRN #10 tablet 03/12/22 12/12/22 HYDROcod/ACETAM 5/325 [[place] 5/325] 1 - 2 tablet PO Q6H PRN #14 tablet 07/08/22 12/12/22 oxyCODONE [Roxicodone] 5 - 10 mg PO Q6H PRN #10 tablet 12/11/22 12/12/22 MDD 6 polyethylene glycoL 3350(BULK) 17 gm PO DAILY PRN #1 each 12/11/22 12/12/22 [Miralax] DULoxetine [Cymbalta] 60 mg PO DAILY 12/12/22 12/12/22 Ondansetron Odt [Zofran] 4 mg TL Q6H PRN #10 tablet 12/12/22 Oxycodone HCl/Acetaminophen 1 - 2 each PO Q6H PRN #10 tablet 12/12/22 [Percocet 5-325 mg Tablet] Venlafaxine HCl [Effexor Xr] 75 mg PO DAILY 12/12/22 12/12/22 - Allergies Allergies/Adverse Reactions: Allergies Allergy/AdvReac Type Severity Reaction Status Date / Time fentanyl Allergy Diaphoresis Verified 12/12/22 06:32 - Social History Does the pt smoke?: No Smoking Status: Never smoker PD ED PE NORMAL - Vitals Vital signs reviewed: Yes - General General: Well developed/nourished, Other (The patient is alert and grossly oriented. She is crying throughout our entire conversation, though with minimal tear production.) - HEENT HEENT: Atraumatic, PERRL, EOMI, Moist mucous membranes - Neck Neck: Supple, no meningeal sign - Cardiac Cardiac: RRR, No murmur, Strong equal pulses - Respiratory Respiratory: No respiratory distress, Clear bilaterally - Abdomen Abdomen: Soft, Non distended, Other (Minimal tenderness left flank, no rebound or guarding) - Back Back: No CVA TTP, No spinal TTP, Other (No tenderness anywhere else on her back.) - Derm Derm: Normal color, Warm and dry, No rash - Extremities Extremities: No deformity, Normal ROM s pain, No edema - Neuro Neuro: Alert and oriented X 3, guide domestic tour 2-12 intact, Normal speech, Other (Grossly intact) - Psych Psych: Normal mood, Normal affect Results - Vitals Vitals: Oxygen O2 Source Room air PD Medical Decision Making - ED course Complexity details: reviewed old records, reviewed results, considered differential, d/w patient ED course: The patient was extremely emotionally distraught upon my examination. She was convinced that she had a kidney stone that was passing, despite the fact that she had had the same pain, though reportedly less today than yesterday, and yet with negative stone work-up. I discussed with the patient that it is important to keep an open mind as to other potential causes of the pain, although truthfully, emergent condition at this point has been ruled out in all probability by any testing that we can do, Since CT did not show any other serious or concerning cause of the pain yesterday and the patient does not have any other indicators of an emergent condition at this time. The patient was counseled yesterday that her CT did show significant constipation and that she needs to be on stool softeners, and also, that the pain medication will cause increased constipation and likely, increased discomfort. I have discussed the same with her at this point in time. The patient has had multiple CT scans over the years and I do not feel that it is in her interest to have another CT, particularly since she had a completely negative CT other than constipation yesterday. I will reevaluate her today, in light of her increased pain, with an ultrasound of the kidneys and ureters to determine whether she now has a stone passing. I am treating her with Dilaudid, Toradol and Zofran in the ED. I have advised her to call Dr. Sigala's office if she wishes further evaluation for the possibility of stone. Departure - Departure Disposition: 01 Home, Self Care Clinical Impression: Constipation Qualifiers: Constipation type: drug induced constipation Qualified Code(s): K59.03 - Drug induced constipation Abdominal pain Qualifiers: Abdominal location: left lower quadrant Qualified Code(s): R10.32 - Left lower quadrant pain Condition: Stable Instructions: ED Abdominal Pain Female Non-Specific Abdominal Pain, ED Constipation Prescriptions: Oxycodone HCl/Acetaminophen [Percocet 5-325 mg Tablet] 1 - 2 each PO Q6H PRN #10 tablet PRN Reason: pain Ondansetron Odt [Zofran] 4 mg TL Q6H PRN #10 tablet PRN Reason: Nausea / Vomiting Comments: Your ultrasound today is negative. You do not have any evidence of a stone passing at this time, and your CT yesterday also did not show any evidence of this. You do have a tiny stone in each kidney, though neither of these is passing at this time, and as such, should not be causing you any symptoms. The only thing that has shown up as a possible cause of your pain is that you do have very significant stool burden in your descending colon, which is on the left side. As such, you can get the same waves of pain from your colon trying to contract against and inflexible, and moving massive stool. Additionally, having taken the magnesium citrate could amplify your symptoms by increasing the strength and frequency of the large intestinal contractions. This could cause a pain similar to when you have a kidney stone. It may be helpful if you have not already produced a stool, to use an at-home enema to help break up the lower reaches of the stool burden, making it easier for the stool of higher to pass. It is not a bad idea to take an enema every 4-6 hours to keep working on breaking this up, until you can stool on your own. Your prescription for the Percocet, as well as a prescription for nausea medication, has been electronically transmitted to the [facility] pharmacy in [place]. It is very important that you take the narcotic pain medication as little as possible to help get your bowels moving again, as you most likely have developed this degree of constipation because of the chronic narcotic use. Please plan to go through with your colonoscopy this week to determine whether there is any other potential causes of your symptoms. You should also follow-up with your primary doctor to discuss having MRI of your low back to determine whether the repeated bouts of left back/flank pain could be coming from an issue in your back. While you certainly could at some time pass a stone again, it is important to keep an open mind to other potential causes of back and flank pain. Please do follow-up as planned with urology in a few weeks to discuss their thoughts on your repeated bouts of flank pain in the absence of any findings of a stone passing. Discharge Date/Time: 12/12/22 09:34
[2022-12-12] MEDS ORDERED: oxyCODONE 5 MG TABLET PO STA (09:11)
[2022-12-12 09:15] VITALS: BP 137/97
--- NOTE | 2022-12-12 13:45 | Ultrasound Report ---
PROCEDURE: Retroperitoneal Limited INDICATIONS: L flank pn, worse today, CT no passing stone yest TECHNIQUE: Real-time scanning was performed of the left kidney, only, as requested, with image documentation. COMPARISON: CT abdomen and pelvis with contrast dated 12/11/2022 FINDINGS: Left kidney: Normal in size, measuring 10.6 cm, with a cortical thickness of 1.5 cm. No hydronephros is. No stones seen. The bladder has a smooth contour. There is a left ureteral jet noted. IMPRESSION: Unremarkable left kidney. No hydronephrosis. Left ureteral jet noted. Normal size. Reviewed by: Eugenio Qureshi MD on 12/12/2022 8:23 AM PDT Approved by: Eugenio Qureshi MD on 12/12/2022 8:23 AM PDT Station ID: [id number]
== END 2022-12-12 09:34 | disposition home or self-care (01) ==
LOC: ED 06:29
DX: K59.03 Drug induced constipation (principal); R10.32 Left lower quadrant pain; Z79.899 Other long term (current) drug therapy
CPT/HCPCS: 76775; 96372; 99283; 99284; A9270; J1170; Q0162